=== PATIENT | male | born 1980 | race African-American/Black ===

== ENCOUNTER 2016-05-24 23:49 | Inpatient (IN) | payer SELFPAY ==
[~2016-05-24] VITALS: Ht 190.5 cm; Wt 87.1 kg
[2016-05-25] VITALS (20 sets, daily range): BP systolic 113–154; BP diastolic 64–111
[2016-05-25 00:32] LABS: EOSINOPHIL COUNT 0.1 K/uL (0-0.3); IMMATURE GRANULOCYTE (%) 0.2 % (0.0-0.7); INSTRUMENT ABS NEUTROPHIL CT 6.5 K/uL; LYMPHOCYTE COUNT 1.1 K/uL (1.0-2.8); MCH 30.3 PG (29.0-34.0); MCHC 34.4 G/DL (30.0-36.0); MEAN PLAT.VOLUME 9.4 uM^3 (9.0-12.4); MONOCYTE COUNT 0.4 K/uL (0-0.8); NEUTROPHIL (%) 79.9 % (45-76); NEUTROPHIL COUNT 6.5 K/uL (1.8-6.4); PLATELET COUNT 346 K/uL (156-360); RBC DIS.WIDTH-CV 12.4 % (11.8-14.6); RBC DIS.WIDTH-SD 39.5 % (39-53); RED BLOOD COUNT 4.66 M/uL (4.00-5.50); WHITE BLOOD COUNT 8.1 K/uL (4.1-10.2)
[2016-05-25 00:42] LABS: CHLORIDE 113 mEq/L (99-109); POTASSIUM 3.6 mEq/L (3.7-5.4); SODIUM 145 mEq/L (136-147)
[2016-05-25 00:44] LABS: AMYLASE 34 IU/L (1-118)
[2016-05-25 00:45] LABS: GLUCOSE 118 mg/dL (70-99)
[2016-05-25 00:46] LABS: ANION GAP 10 MEQ/L (2-14)
[2016-05-25 00:47] LABS: TOTAL BILIRUBIN 0.5 mg/dL (0.0-1.0)
[2016-05-25 00:48] LABS: SERUM ETHYL ALCOHOL < 10 mg/dL
[2016-05-25 00:49] LABS: ALKALINE PHOSPHATASE 77 IU/L (3-129); GFR ESTIMATE (CALCULATED) > 59 mL/min/
[2016-05-25 00:50] LABS: UREA NITROGEN (BUN) 23 mg/dL (9-23)
[2016-05-25 00:52] LABS: SALICYLATE < 5.0 MG/DL (15-30)
[2016-05-25 00:53] LABS: LIPASE 26 U/L (1.0-51.0)
[2016-05-25 01:14] LABS: ADD MIUA? NO; BILIRUBIN NEGATIVE; BLOOD NEGATIVE; COLOR YELLOW ((YELLOW)); GLUCOSE (STRIP) NEGATIVE; KETONES NEGATIVE; LEUKOCYTES NEGATIVE; NITRITE NEGATIVE; PROTEIN (STRIP) 30; SPECIFIC GRAVITY 1.025 (1.000-1.030); UCUL ADDED? NO; UROBILINOGEN 0.2 MG/DL (0.2-1.0)
[2016-05-25 01:33] LABS: AMPHETAMINE NEGATIVE (500 ng/mL); BARBITURATES NEGATIVE (200 ng/mL); BENZODIAZEPINES NEGATIVE (150 ng/mL); COCAINE PRESUMPTIVE POSITIVE (150 ng/mL); METHADONE NEGATIVE (200 ng/mL); METHAMPHETAMINE NEGATIVE (500 ng/mL); OPIATES (MORPHINE) NEGATIVE (100 ng/mL); PHENCYCLIDINE PRESUMPTIVE POSITIVE (25 ng/mL); THC CANNABINOIDS NEGATIVE (50 ng/mL); TRICYCLIC ANTIDEPRESSANTS NEGATIVE (300 ng/mL)
[2016-05-25 01:34] LABS: ADD MEDTOX COMMENT Y; INTERNAL CONTROLS VALID? YES; OXYCODONE NEGATIVE (100 ng/mL); PROPOXYPHENE NEGATIVE (300 ng/mL)
[2016-05-25 03:33] LABS: BASE EXCESS -0.7 mEq/L (-3 to +3); BICARBONATE 23.2 mEq/L (22-26); CARBOXY HGB 2.2 % (0-5); COMMENTS - BLOOD GASES A+C+; DEVICE 840; FI02 100 %; MECHANICAL RATE 16 resp/min; MODE AC; PCO2 35 mm Hg (35-45); PEEP 5 CM/H20; PO2 237 mm Hg (80-100); SITE RR; TIDAL VOLUME 500 ML; TOTAL RESP RATE 19 resp/min; pH 7.43 (7.35-7.45)
[2016-05-25 06:59] LABS: METH RESISTANT S AUREUS PCR POSITIVE (NEGATIVE)
[2016-05-25 07:02] LABS: PROBE CHECK PASS
[2016-05-25 15:16] LABS: ANION GAP 6 MEQ/L (2-14); CHLORIDE 111 MEQ/L (99-109); GFR ESTIMATE (CALCULATED) > 59 mL/min/; POTASSIUM 3.9 MEQ/L (3.7-5.4); SAMPLE HEMOLYSIS CHECK 0; SAMPLE ICTERIC CHECK 0; SAMPLE LIPEMIA CHECK 0; SODIUM 142 MEQ/L (136-147); UREA NITROGEN (BUN) 15 mg/dL (9-23)
[2016-05-25 15:18] LABS: GLUCOSE 86 mg/dL (70-99)
[2016-05-25 16:20] LABS: EOSINOPHIL (%) 1.6 % (0-5); EOSINOPHIL COUNT 0.2 K/uL (0-0.3); HEMATOCRIT 38.4 % (38.0-50.0); IMMATURE GRANULOCYTE (%) 0.2 % (0.0-0.7); INSTRUMENT ABS NEUTROPHIL CT 8.2 K/uL; MCH 30.1 PG (29.0-34.0); MCHC 33.6 G/DL (30.0-36.0); MCV 89.5 FL (86-99); MEAN PLAT.VOLUME 9.4 uM^3 (9.0-12.4); MONOCYTE (%) 5.9 % (3-12); MONOCYTE COUNT 0.7 K/uL (0-0.8); NEUTROPHIL (%) 74.3 % (45-76); NEUTROPHIL COUNT 8.2 K/uL (1.8-6.4); PLATELET COUNT 283 K/uL (156-360); RBC DIS.WIDTH-CV 13.1 % (11.8-14.6); RBC DIS.WIDTH-SD 42.7 % (39-53); RED BLOOD COUNT 4.29 M/uL (4.00-5.50); WHITE BLOOD COUNT 11.1 K/uL (4.1-10.2)
[2016-05-26] VITALS (17 sets, daily range): BP systolic 105–159; BP diastolic 52–97
[2016-05-26 06:02] LABS: EOSINOPHIL (%) 2.1 % (0-5); EOSINOPHIL COUNT 0.2 K/uL (0-0.3); HEMATOCRIT 37.4 % (38.0-50.0); IMMATURE GRANULOCYTE (%) 0.2 % (0.0-0.7); LYMPHOCYTE COUNT 1.7 K/uL (1.0-2.8); MCH 29.8 PG (29.0-34.0); MCHC 33.4 G/DL (30.0-36.0); MEAN PLAT.VOLUME 9.3 uM^3 (9.0-12.4); MONOCYTE (%) 7.2 % (3-12); MONOCYTE COUNT 0.7 K/uL (0-0.8); NEUTROPHIL (%) 72.8 % (45-76); PLATELET COUNT 275 K/uL (156-360); RBC DIS.WIDTH-CV 12.8 % (11.8-14.6); RBC DIS.WIDTH-SD 42.1 % (39-53); WHITE BLOOD COUNT 9.6 K/uL (4.1-10.2)
[2016-05-26 06:28] LABS: ANION GAP 6 MEQ/L (2-14); CHLORIDE 110 MEQ/L (99-109); CREATINE KINASE 195 IU/L (1-294); GFR ESTIMATE (CALCULATED) > 59 mL/min/; GLUCOSE 78 mg/dL (70-99); MAGNESIUM 1.9 mg/dl (1.3-2.7); POTASSIUM 3.6 MEQ/L (3.7-5.4); SAMPLE HEMOLYSIS CHECK 0; SAMPLE ICTERIC CHECK 0; SAMPLE LIPEMIA CHECK 0; SODIUM 143 MEQ/L (136-147); TRIGLYCERIDES 69 MG/DL (Normal: <150); UREA NITROGEN (BUN) 11 mg/dL (9-23)
== END 2016-05-26 20:28 | disposition left against medical advice (07) | DRG 917 ==
LOC: EME → EDBD 23:49 → EME 23:49 → EDOF 05-25 04:28 → 4WEST 05-25 04:28
PROVIDERS: Emergency Medicine; Internal Medicine Nephrology
DX: T50.901A Poisoning by unspecified drugs, medicaments and biological substances, accidental (unintentional), initial encounter (principal); J96.00 Acute respiratory failure, unspecified whether with hypoxia or hypercapnia; G92 Toxic encephalopathy; T17.508A Unspecified foreign body in bronchus causing other injury, initial encounter; J98.11 Atelectasis; E83.42 Hypomagnesemia; J32.9 Chronic sinusitis, unspecified; N28.9 Disorder of kidney and ureter, unspecified; E87.6 Hypokalemia; F16.10 Hallucinogen abuse, uncomplicated; F14.10 Cocaine abuse, uncomplicated; F17.210 Nicotine dependence, cigarettes, uncomplicated; I10 Essential (primary) hypertension; A49.02 Methicillin resistant Staphylococcus aureus infection, unspecified site; W05.1XXA Fall from non-moving nonmotorized scooter, initial encounter; Y93.9 Activity, unspecified; Y92.9 Unspecified place or not applicable
CPT/HCPCS: 36600; 70450; 71010; 71260; 72125; 74177; 80048; 80048 91; 80053; 81003; 82150; 82550; 82803; 83690; 83735; 84100; 84478; 84999; 85025; 85025 91; 86850; 86900; 86901; 87070; 87077; 87147; 87186; 87205; 87641; 93005; 94002; 94003; 94640; 94640 76; 94760; 94799; 99202; 99281; 99285; G0480; J0330; J1650; J1956; J2060; J2250; J2704; J3370; J3475; J3480; J7030; J7050; J7120

== ENCOUNTER 2016-10-10 11:38 | Emergency (ER) | payer SELFPAY ==
[~2016-10-10] VITALS: Ht 177.8 cm; Wt 85.5 kg
[2016-10-10] MEDS ORDERED: MOTRIN600 MG PO (13:28)
[2016-10-10 13:42] VITALS: BP 141/100
== END 2016-10-10 13:42 | disposition home or self-care (01) ==
LOC: EME 11:38
DX: M26.602 Left temporomandibular joint disorder, unspecified (principal); M54.5 Low back pain; G89.29 Other chronic pain; H92.02 Otalgia, left ear; W50.0XXA Accidental hit or strike by another person, initial encounter; Y93.67 Activity, basketball; F17.200 Nicotine dependence, unspecified, uncomplicated
CPT/HCPCS: 99281; 99282